=== PATIENT | male | born 1965 | race Two or more races ===

== ENCOUNTER 2017-08-13 16:28 | Emergency (ER) | payer OTHER ==
[~2017-08-13] VITALS: Ht 144.8 cm; Wt 66.7 kg
[2017-08-13 17:38] VITALS: BP 107/61
[2017-08-13] MEDS ORDERED: Albuterol ud Inhalation HHN ONE (18:30)
[2017-08-13] MEDS ORDERED: Ipratropium 0.02% Inh Soln 2.5ml UD HHN ONE (18:30)
[2017-08-13] MEDS ORDERED: IBUPROFEN600 MG ORAL (19:07)
[2017-08-13] MEDS ORDERED: ZITHROMAX250 MG ORAL (19:07)
[2017-08-13] MEDS ORDERED: PROMETHAZINE-D118 ML ORAL (19:07)
[2017-08-13 19:23] VITALS: BP 96/61
--- NOTE | 2017-08-13 23:06 | Emergency Room Report ---
History of Present Illness General Chief Complaint: Upper Respiratory Illness Source: Patient (MARTIN ZIMMER) Present Illness HPI The patient is a 51-year-old male presenting for one week of fever and cough. He states that he was in [place] when he developed the symptoms. he denies any medical history. He denies any pain and denies other symptoms including N, V, SOB, CP (MARTIN ZIMMER) Allergies: Coded Allergies: No Known Allergies (Unverified , 08/13/17) Patient History Past Medical History: see triage record Pertinent Family History: none Reviewed Nursing Documentation: PMH: Agreed, PSxH: Agreed (MARTIN ZIMMER) Nursing Documentation-PMH Past Medical History: No History, Except For (MARTIN ZIMMER) Physical Exam Vital Signs Date Time Temp Pulse Resp B/P (MAP) Pulse Ox O2 Delivery O2 Flow Rate FiO2 08/13/17 17:38 107 18 Room Air 08/13/17 17:38 101.7 107/61 94 (MARTIN ZIMMER) Medical Decision Making PA Attestation Dr. Su is my supervising physician. Patient management was discussed with my supervising physician (MARTIN ZIMMER) Diagnostic Impression: Primary Impression: Atypical pneumonia ER Course The patient is a 51-year-old male presenting for one week of fever and cough Differential diagnosis include but not limited to pharyngitis, sinusitis, AOM, bronchitis, PNA PE: febrile. NAD HEENT exam unremarkable Lungs are clear to auscultation bilaterally The patient is given Motrin for fever Chest x-ray shows right upper lobe and left upper lobe opacities He'll be discharged home with prescription for antibiotics and cough medication. ER precautions are given (MARTIN ZIMMER.AMarjorie) ER Course Procedure: XRAY Chest 1v Indication: Cough Technique: One view of the chest Comparison: none Findings: Opacities and volume loss in the right upper lobe may reflect atelectasis, scarring, and/or consolidation. There is consolidation at the left lung base. Normal heart size Impression: Left basilar infiltrate Right upper lobe parenchymal opacities with volume loss, likely atelectasis or scarring, superimposed infiltrate also a possibility Electronically signed by Alaiyah Su MD (Aaliyah Su M.D.) Chest X-Ray Diagnostic Results Chest X-Ray Diagnostic Results : Chest X-Ray Ordered: Yes # of Views/Limited/Complete: 1 View Indication: Other - cough EP Interpretation: Yes PA Xray: Interpretation reviewed, by supervising MD, and agrees with findings. Interpretation: no pneumothorax, other - LLL effusion with possible RUL as well Impression: Other - RUL and LLL opacities Electronically Signed by: Martin Zimmer PA-C (MARTIN ZIMMER P.A.) Last Vital Signs Date Time Temp Pulse Resp B/P (MAP) Pulse Ox O2 Delivery O2 Flow Rate FiO2 08/13/17 19:23 102 18 96/61 99 Room Air 08/13/17 17:38 101.7 Status: improved (MARTIN ZIMMER P.A.) Disposition: HOME, SELF-CARE Condition: Improved Scripts Ibuprofen* (MOTRIN*) 600 Mg Tablet 600 MG ORAL Q8H Y for For Pain, #30 TAB 0 Refills Prov: MARTIN ZIMMER P.A. 08/13/17 D-Methorphan Hb/Prometh Hcl* (PROMETHAZINE-DM SYRUP*) 118 Ml Syrup 5 ML ORAL Q6H Y for For Cough, #118 ML 0 Refills Prov: MARTIN ZIMMER P.A. 08/13/17 Azithromycin* (ZITHROMAX*) 250 Mg Tablet 250 MG ORAL DAILY, #6 TAB 0 Refills Take two tables once daily for 1 day, then one tablet once daily for 4 days. Prov: MARTIN ZIMMRE P.A. 08/13/17 Referrals: NOT CHOSEN IPA/,REFERRING (PCP) Patient Instructions: Community-Acquired Pneumonia, Adult Additional Instructions: I discussed my findings with the patient. All questions and concerns have been answered. Treatment and medication compliance have been addressed. I advised the patient that they need to follow up with primary doctor within 3 days. Return to ED if symptoms worsen, new symptoms arise, or if needed for any reason. Patient verbalized understanding of discharge instructions. MARTIN ZIMMERAMarjorie Aug 13, 2017 23:06 Aaliyah Su M.D. Aug 17, 2017 14:01
--- NOTE | 2017-08-14 08:49 | Diagnostic Imaging Report ---
Indication: Cough Technique: One view of the chest Comparison: none Findings: Opacities and volume loss in the right upper lobe may reflect atelectasis, scarring, and/or consolidation. There is consolidation at the left lung base. Normal heart size Impression: Left basilar infiltrate Right upper lobe parenchymal opacities with volume loss, likely atelectasis or scarring, superimposed infiltrate also a possibility
== END 2017-08-13 19:30 | disposition home or self-care (01) ==
LOC: EMR 17:45
DX: J18.9 Pneumonia, unspecified organism (principal)
CPT/HCPCS: 71045; 94640; 94664; 99283